=== PATIENT | female | born 2000 | race African-American/Black ===

== ENCOUNTER 2025-03-21 12:05 | Emergency (ER) | payer SELFPAY ==
[~2025-03-21] VITALS: Ht 170.2 cm; Wt 64.0 kg
[2025-03-21 12:09] VITALS: TEMP 36.9; O2SAT 99
[2025-03-21] MEDS ORDERED: DIPHENHYDRAMINE 50MG CAPSULE PO ONE (13:15)
[2025-03-21] MEDS: ONDANSETRON 4MG ODT PO ONE (13:40)
[2025-03-21] MEDS: DIPHENHYDRAMINE 25MG CAPSULE PO NR (13:41)
[2025-03-21] MEDS: IBUPROFEN 400MG TABLET PO ONE (15:49)
[2025-03-21] MEDS: LIDOCAINE 5% PATCH TOP SCH (15:49)
[2025-03-21] MEDS: ACETAMINOPHEN 325MG TABLET PO ONE (15:50)
[2025-03-21] MEDS ORDERED: ACET-2708 MT (16:11)
[2025-03-21] MEDS ORDERED: IBUP-2028 MT (16:11)
[2025-03-21] MEDS ORDERED: LIDO-53 TP (16:11)
[2025-03-21 16:32] VITALS: BP 122/82; PULSE 78; RESP 12; O2SAT 100
== END 2025-03-21 16:34 | disposition home or self-care (01) ==
LOC: ER 12:05
DX: M54.2 Cervicalgia (principal); Z88.0 Allergy status to penicillin; V89.2XXA Person injured in unspecified motor-vehicle accident, traffic, initial encounter; Y93.89 Activity, other specified; Y92.410 Unspecified street and highway as the place of occurrence of the external cause; Y99.8 Other external cause status
CPT/HCPCS: 99284; 70450; 72125; 72128; 72131; Q0163; Q0162; L0172